=== PATIENT | female | born 1965 | race Caucasian/White ===

== ENCOUNTER 2021-03-12 17:14 | Emergency (ER) | payer OTHER ==
[~2021-03-12] VITALS: Wt 72.6 kg
[~2021-03-12 17:14] MED LIST: ANAPROX DS550 MG PO; CLARITIN10 MG PO; FERROUS SULFAT324 M1 PO; LOMOTIL 0.025 M1 TAB PO; MEDROL DOSEPAK4 MG PO; PERCOCET 325 MG1 TA2 PO; PROVENTIL0.09 MG/AC IH; PROVERA5 MG PO; Phenergan25 MG PO; SEPTRA DS 800 M1 TAB PO; ZITHROMAX Z PA250 MG PO
[2021-03-12] MEDS ORDERED: HYDROCODONE-AC1 EAC1 PO (18:27)
== END 2021-03-12 18:55 | disposition home or self-care (01) ==
LOC: ED 17:14
DX: S82.891A Other fracture of right lower leg, initial encounter for closed fracture (principal); Z79.899 Other long term (current) drug therapy; Z98.51 Tubal ligation status; W01.0XXA Fall on same level from slipping, tripping and stumbling without subsequent striking against object, initial encounter; Y93.K1 Activity, walking an animal; Y92.89 Other specified places as the place of occurrence of the external cause; Y99.8 Other external cause status

== ENCOUNTER → 2021-07-17 | Outpatient (CLI) | payer OTHER ==
[~2021-07-17] MED LIST changes: +HYDROCODONE-AC1 EAC1 PO
== END | disposition home or self-care (01) ==
LOC: COVID19 18:26
PROVIDERS: ATTEND Internal Medicine
DX: U07.1 COVID-19 (principal)

== ENCOUNTER → 2021-07-28 | Outpatient (CLI) | payer OTHER | END | disposition home or self-care (01) | LOC: COVID19 18:44 | PROVIDERS: ATTEND Internal Medicine | DX: U07.1 COVID-19 (principal) ==